=== PATIENT | male | born 1975 | race African-American/Black ===

== ENCOUNTER 2018-01-25 21:33 | Emergency (ER) | payer OTHER ==
[~2018-01-25] VITALS: Ht 182.9 cm; Wt 163.3 kg
[2018-01-25 21:39] VITALS: Ht 182.9 cm; Wt 163.3 kg
[2018-01-25 22:33] LABS: BASOPHIL % 0.4 % (0-2); PLATELET COUNT 168 x10^3mcL (130-400)
[2018-01-25 22:36] LABS: RED CELL DISTRIBUTION WIDTH 15.4 % (11.5-14.5)
[2018-01-25 22:38] LABS: CALCIUM 8.2 mg/dL (8.5-10.1); CARBON DIOXIDE 28.9 mmol/L (21-32); CHLORIDE SERUM 105 mmol/L (98-107); CREATININE SERUM 1.1 mg/dL (0.7-1.3); GFR1 > 60 mL/min; GLUCOSE SERUM 99 mg/dL (74-106); POTASSIUM SERUM 3.6 mmol/L (3.5-5.1); SODIUM SERUM 142 mmol/L (136-145)
[2018-01-25 22:40] LABS: AMPHETAMINE QUAL UR NONE DETECTED (NEG <=1000)
[2018-01-25 22:43] LABS: ALBUMIN 3.5 g/dL (3.4-5.0); ALKALINE PHOSPHATASE 81 U/L (46-116); ALT/SGPT 28 U/L (16-63); AST/SGOT 20 U/L (15-37); BILIRUBIN TOTAL 0.3 mg/dL (0.20-1.00); TOTAL PROTEIN, SERUM 6.9 g/dL (6.4-8.2)
[2018-01-26 01:13] VITALS: BP 133/91
== END 2018-01-26 01:13 | disposition home or self-care (01) ==
LOC: ED 21:33
PROVIDERS: Specialist
DX: F20.9 Schizophrenia, unspecified (principal); F15.10 Other stimulant abuse, uncomplicated; J45.909 Unspecified asthma, uncomplicated; I10 Essential (primary) hypertension
CPT/HCPCS: 36415; G0480

== ENCOUNTER 2018-02-02 15:50 | Emergency (ER) | payer OTHER ==
[~2018-02-02] VITALS: Ht 180.3 cm; Wt 90.7 kg
[2018-02-02 15:58] VITALS: Ht 180.3 cm; Wt 90.7 kg
[2018-02-02 16:54] LABS: microscopic required? NO
[2018-02-02 17:06] LABS: UA SPECIFIC GRAVITY >=1.030 (1.005-1.035); urine erythrocyte NEGATIVE (NEGATIVE)
[2018-02-02 17:16] LABS: BASOPHIL % 0.5 % (0-2); PLATELET COUNT 198 x10^3mcL (130-400)
[2018-02-02 17:18] LABS: RED CELL DISTRIBUTION WIDTH 16.6 % (11.5-14.5)
[2018-02-02 17:29] LABS: CALCIUM 8.6 mg/dL (8.5-10.1); CARBON DIOXIDE 27.4 mmol/L (21-32); CHLORIDE SERUM 109 mmol/L (98-107); CREATININE SERUM 1.2 mg/dL (0.7-1.3); GFR1 > 60 mL/min; GLUCOSE SERUM 91 mg/dL (74-106); SODIUM SERUM 144 mmol/L (136-145)
[2018-02-02 17:31] LABS: ALBUMIN 3.5 g/dL (3.4-5.0); ALKALINE PHOSPHATASE 70 U/L (46-116); ALT/SGPT 36 U/L (16-63); AST/SGOT 31 U/L (15-37)
[2018-02-02 17:54] LABS: AMPHETAMINE QUAL UR POSITIVE (See below)
[2018-02-02 19:05] VITALS: BP 128/90
== END 2018-02-02 19:05 | disposition home or self-care (01) ==
LOC: ED 15:50
PROVIDERS: Specialist
DX: F19.10 Other psychoactive substance abuse, uncomplicated (principal); F20.89 Other schizophrenia; J45.909 Unspecified asthma, uncomplicated; I10 Essential (primary) hypertension; Z86.73 Personal history of transient ischemic attack (TIA), and cerebral infarction without residual deficits
CPT/HCPCS: 36415; 83880; G0480

== ENCOUNTER 2019-05-28 17:00 | Emergency (ER) | payer MEDICAID ==
[~2019-05-28] VITALS: Ht 182.9 cm; Wt 156.5 kg
[2019-05-28 17:08] VITALS: Ht 182.9 cm; Wt 156.5 kg
[2019-05-28 17:53] LABS: BASOPHIL % 0.3 % (0-2); PLATELET COUNT 261 x10^3mcL (130-400); RED CELL DISTRIBUTION WIDTH 14.5 % (11.5-14.5)
[2019-05-28 17:58] LABS: CALCIUM 9.5 mg/dL (8.5-10.1); CARBON DIOXIDE 30.7 mmol/L (21-32); CHLORIDE SERUM 102 mmol/L (98-107); CREATININE SERUM 1.2 mg/dL (0.7-1.3); GFR1 > 60 mL/min; GLUCOSE SERUM 90 mg/dL (74-106); SODIUM SERUM 140 mmol/L (136-145)
[2019-05-28 18:02] LABS: ALKALINE PHOSPHATASE 85 U/L (46-116); ALT/SGPT 21 U/L (16-63); AST/SGOT 15 U/L (15-37); LIPASE 78 IU/L (73-393); TOTAL PROTEIN, SERUM 8.2 g/dL (6.4-8.2)
[2019-05-28 18:05] LABS: ALBUMIN 3.3 g/dL (3.4-5.0)
[2019-05-28 19:10] LABS: microscopic required? NO
[2019-05-28 19:22] LABS: urine erythrocyte NEGATIVE (NEGATIVE)
[2019-05-28 19:33] LABS: AMPHETAMINE QUAL UR NONE DETECTED (See below)
[2019-05-29 00:37] VITALS: BP 126/87
== END 2019-05-29 00:37 | disposition home or self-care (01) ==
LOC: ED 17:00
PROVIDERS: Emergency Medicine
DX: R10.11 Right upper quadrant pain (principal); R11.2 Nausea with vomiting, unspecified; R05 Cough; J45.909 Unspecified asthma, uncomplicated; I10 Essential (primary) hypertension; F20.9 Schizophrenia, unspecified; Z86.73 Personal history of transient ischemic attack (TIA), and cerebral infarction without residual deficits
CPT/HCPCS: 36415; G0480; Q0092